=== PATIENT | female | born 2000 | race Caucasian/White ===

== ENCOUNTER 2022-06-21 22:08 | Emergency (ER) | payer SELFPAY ==
[~2022-06-21 22:08] MED LIST: Iopamidol-370 76% 500 ML 1 ML ONE
[2022-06-21 23:46] LABS: #Eosinphils 0.2 thou/uL (0.0-0.7); #Lymphocytes 0.7 thou/uL (1.20-3.40); #Monocytes 0.3 thou/uL (0.11-0.59); %Basophils 0.2 % (0.0-1.0); %Eosinophils 1.3 % (0.0-10.0); %Monocytes 1.5 % (0.0-4.0); Hemoglobin 14.1 g/dL (12.0-16.0); Mean Corpuscular Hemoglobin 32.4 pg (25.0-35.0); Mean Corpuscular Volume 92.7 fL (78.0-98.0); Mean Platelet Volume 6.8 fL (7.4-10.4); Platelet Count 366 thou/uL (130-400); RBC Distribution Width 12.4 % (11.5-14.5); Red Blood Cell (RBC) Count 4.37 mill/uL (4.00-5.20); White Blood Cell (WBC) Count 17.2 thou/uL (4.8-10.8)
[2022-06-21 23:55] LABS: BHCG - Serum Negative (NEGATIVE); Pregs Control Background? CLEAR/WHITE (CLR/WHITE); Pregs Control Bar Appear? YES (CONTROL BAR)
[2022-06-22 00:10] LABS: ALT (SGPT) 10 U/L (8-55); AST (SGOT) 15 U/L (5-34); Albumin 4.4 g/dL (3.5-5.0); Alkaline Phosphatase 60 U/L (40-100); Anion Gap 15 mmol/L (10-20); BUN (Urea Nitrogen) 14 mg/dL (7.0-18.7); Bilirubin, Total 0.4 mg/dL (0.2-1.2); Calc. Creatinine Clearance 0 mL/min (70-130); Calcium 9.9 mg/dL (7.8-10.44); Carbon Dioxide 23 mmol/L (22-29); Chloride 105 mmol/L (98-107); Estimated GFR 119; Globulin 3.4 g/dL (2.4-3.5); Glucose 122 mg/dL (70-105); Potassium 3.7 mmol/L (3.5-5.1); Protein, Total 7.8 g/dL (6.0-8.3); Sodium 139 mmol/L (136-145)
[2022-06-22] MEDS ORDERED: Ketorolac Tromethamine 30 MG/ML VIAL ONE (01:53)
== END 2022-06-22 02:03 | disposition home or self-care (01) ==
LOC: ERS 22:08
DX: R07.89 Other chest pain (principal); R06.02 Shortness of breath
CPT/HCPCS: 71275; 80053; 84703; 85025; 93005; 96374; J1885

== ENCOUNTER 2022-08-18 22:52 | Emergency (ER) | payer SELFPAY | END 2022-08-19 02:03 | disposition left against medical advice (07) | LOC: ERS 22:52 | DX: Z53.21 Procedure and treatment not carried out due to patient leaving prior to being seen by health care provider (principal) ==

== ENCOUNTER 2022-09-21 17:54 | Inpatient (IN) | payer SELFPAY ==
[2022-09-21] MEDS ORDERED: Acetaminophen 325 MG TAB PO PRN (20:01)
[2022-09-21] MEDS ORDERED: Bisacodyl 5 MG TAB PO PRN (20:01)
[2022-09-21] MEDS ORDERED: GUAIFENESIN SF SOLN 200 MG/10 ML UDCUP PO PRN (20:03)
[2022-09-21] MEDS ORDERED: Sodium Chloride 0.9% 1,000 ML IV SCH (20:15)
[2022-09-21] MEDS ORDERED: Magnesium 2 GM/50 ML(in water) 2 GM in Premix Bag 1 BAG IVPB SCH (20:15)
[2022-09-21] MEDS: cefTRIAXone\\ROCEPHIN 1 GM in Sodium Chloride 0.9% 100 ML IVPB SCH (20:37)
[2022-09-21] MEDS: HYDROcodone/Acetaminophen 7.5/325 mg Tablet PO PRN (20:50)
[2022-09-21] MEDS: Famotidine 20 MG TAB PO SCH (20:51)
[2022-09-21] MEDS: Nicotine 14 MG PATCH TD SCH (20:51)
[2022-09-21] MEDS ORDERED: Morphine 4 MG/ML VIAL SLOW IVP PRN ×2 (20:52→21:10)
[2022-09-21] MEDS ORDERED: Morphine 2 MG/ML VIAL SLOW IVP PRN (20:58)
[2022-09-21] MEDS ORDERED: Zolpidem Tartrate 5 MG TAB PO PRN (21:07)
[2022-09-21] MEDS: Sodium Chloride 0.9% 1,000 ML IV SCH (21:11)
[2022-09-22 00:04] VITALS: BMI 23.1
[2022-09-22] MEDS: methylPREDNISolone Sod Succ/PF 125 MG/2 ML VIAL IVP SCH ×2 (00:59→06:16)
[2022-09-22] MEDS: Sodium Chloride 0.9% 1,000 ML IV SCH ×2 (03:45→10:45)
[2022-09-22 04:11] LABS: #Lymphocytes 0.5 thou/uL (1.20-3.40); #Monocytes 0.1 thou/uL (0.11-0.59); #Neutrophils 11.1 thou/uL (1.40-6.50); %Lymphocytes 4.5 % (28.0-48.0); %Monocytes 1.2 % (0.0-4.0); %Neutrophils 94.3 % (31.0-61.0); Hemoglobin 12.4 g/dL (12.0-16.0); Mean Corpuscular HGB CONC 33.2 g/dL (32.0-36.0); Mean Corpuscular Hemoglobin 31.5 pg (25.0-35.0); Mean Platelet Volume 7.1 fL (7.4-10.4); Platelet Count 316 thou/uL (130-400); RBC Distribution Width 11.8 % (11.5-14.5); Red Blood Cell (RBC) Count 3.94 mill/uL (4.00-5.20); White Blood Cell (WBC) Count 11.7 thou/uL (4.8-10.8)
[2022-09-22 04:34] LABS: ALT (SGPT) 8 U/L (8-55); AST (SGOT) 12 U/L (5-34); Alkaline Phosphatase 57 U/L (40-100); Anion Gap 12 mmol/L (10-20); BUN (Urea Nitrogen) 4 mg/dL (7.0-18.7); Bilirubin, Total 0.3 mg/dL (0.2-1.2); Calc. Creatinine Clearance 125 mL/min (70-130); Calcium 8.7 mg/dL (7.8-10.44); Carbon Dioxide 17 mmol/L (22-29); Chloride 112 mmol/L (98-107); Estimated GFR 129; Glucose 186 mg/dL (70-105); Potassium 3.8 mmol/L (3.5-5.1); Sodium 137 mmol/L (136-145)
[2022-09-22] MEDS ORDERED: Enoxaparin Sodium 40 MG/0.4 ML SYRINGE SC SCH (09:00)
[2022-09-22] MEDS: Famotidine 20 MG TAB PO SCH ×2 (10:51→21:06)
[2022-09-22] MEDS: HYDROcodone/Acetaminophen 7.5/325 mg Tablet PO PRN (13:10)
[2022-09-22] MEDS: Ipratropium Bromide 2.5 ml Neb NEB SCH ×3 (13:30→22:04)
[2022-09-22] MEDS ORDERED: Albuterol Sulfate 1.25 MG/3 ML NEB NEB SCH (14:30)
[2022-09-22] MEDS: Mometasone/Formoterol 200/5 60 PUFF INH SCH (18:00)
[2022-09-22] MEDS: Levalbuterol HCl 1.25 MG/0.5 ML NEB NEB SCH ×2 (18:05→22:04)
[2022-09-22] MEDS: Nicotine 14 MG PATCH TD SCH (21:06)
[2022-09-22] MEDS: cefTRIAXone\\ROCEPHIN 1 GM in Sodium Chloride 0.9% 100 ML IVPB SCH (21:07)
[2022-09-23] MEDS: Levalbuterol HCl 1.25 MG/0.5 ML NEB NEB SCH ×4 (02:19→13:45)
[2022-09-23] MEDS: Ipratropium Bromide 2.5 ml Neb NEB SCH ×4 (02:19→13:46)
[2022-09-23] MEDS: Sodium Chloride For Inhalation 0.9% 3 ML NEB NEB SCH ×4 (07:03→13:47)
[2022-09-23] MEDS: Mometasone/Formoterol 200/5 60 PUFF INH SCH (07:10)
[2022-09-23] MEDS ORDERED: methylPREDNISolone Sod Succ 40 MG VIAL IVP SCH (09:00)
[2022-09-23] MEDS: Famotidine 20 MG TAB PO SCH (09:28)
[2022-09-23 13:06] VITALS: BP 121/73; TEMP 98.4
[2022-09-23] MEDS: HYDROcodone/Acetaminophen 7.5/325 mg Tablet PO PRN (14:23)
== END 2022-09-23 16:30 | disposition home or self-care (01) | DRG 202 ==
LOC: ERS 17:54 → IMCU/EMU 18:30 → 2NO 09-22 16:40
PROVIDERS: ADMIT Internal Medicine; ATTEND Internal Medicine
DX: J45.52 Severe persistent asthma with status asthmaticus (principal); J12.2 Parainfluenza virus pneumonia; J12.89 Other viral pneumonia; F17.210 Nicotine dependence, cigarettes, uncomplicated; J98.2 Interstitial emphysema; R09.02 Hypoxemia; Z82.49 Family history of ischemic heart disease and other diseases of the circulatory system; Z86.16 Personal history of COVID-19
CPT/HCPCS: 36415; 71045; 80053; 85025; 94640; J0696; J2270; J2920; J2930; J3475; J3490; J7050; J7612; J7620